=== PATIENT | male | born 1945 | race Caucasian/White ===

== ENCOUNTER 2018-12-05 12:15 | Outpatient (CLI) | payer OTHER, MEDICARE, SELFPAY ==
[2018-12-05 13:20] LABS: ALT 36 U/L (12-78); AST 30 U/L (15-37); Anion Gap 10.6 mmol/L (3-11); BUN 17 mg/dL (7-18); Bilirubin, Total 0.8 mg/dL (0.2-1.0); CO2 23.4 mmol/L (21.0-32.0); CREATININE 0.92 mg/dL (0.70-1.30); Calcium 8.8 mg/dL (8.5-10.1); Chloride 107 mmol/L (98-107); Glucose 87 mg/dL (70-100); Potassium 4.4 mmol/L (3.5-5.1); Sodium 141 mmol/L (136-145)
[2018-12-05 13:40] LABS: Albumin 3.9 g/dL (3.4-5.0); Alkaline Phosphatase 130 U/L (46-116)
[2018-12-06 09:40] LABS: PSA, Screening 0.5 ng/ml (0-6.5)
== END 2018-12-05 12:35 ==
PROVIDERS: PCP Family Medicine; Visit Provider Family Medicine
DX: K74.60 Unspecified cirrhosis of liver (principal); Z12.5 Encounter for screening for malignant neoplasm of prostate
CPT/HCPCS: 36415; 80053; 84153

== ENCOUNTER 2019-04-06 09:17 | Day surgery (SDC) | payer OTHER, MEDICARE, SELFPAY ==
[2019-04-06 09:34] VITALS: BP 110/74; PULSE 55; RESP 16; TEMP 36; O2SAT 96
[2019-04-06] MEDS: Lactated Ringers 1,000 ML 80 ML IV (09:55)
--- NOTE | 2019-04-06 10:46 | W.PM.DSUDISC ---
Discharge Plan Disposition Patient Disposition: HOME Condition: Good Discharge Details Reason For Visit: Colonoscopy Attending Provider: Isaura Ragland Primary Care Provider: Spencer Aden Home Meds and New Rx's Prescriptions: Continued levothyroxine 50 mcg tablet 50 mcg PO DAILY Qty: 90 RF: 4 Discharge Instructions Additional Instructions: Findings: Diverticulosis was present. Follow up: Plan for a colonoscopy in 5 years due to a history of polyps Please call if you develop: fevers >101.5 Nausea or Vomiting Abdominal pain that is not transient DAY SURGERY UNIT POST COLONOSCOPY INSTRUCTIONS 1. Because there will be medication in your system for the next 24 hours, you may feel a little sleepy. Your coordination will be affected. Therefore: a. Do not drive or operate dangerous equipment for 24 hours. b. Do not drink alcohol beverages for 24 hours (not even beer). c. Plan to go home and rest for the day. 2. Generally there are no restrictions on your activity after a day or so has gone by, but you may feel a bit fatigued for a few days. 3 After you arrive home you may have a light meal and return to a normal diet as you can tolerate it without feeling sick to your stomach. 4. After surgery, you may feel pain or discomfort. This should be only transient, but if it persists please contact your doctor. 5. If there are any questions regarding the findings of your procedure, please feel free to contact your doctor. 6. If you are unable to contact your doctor with a problem, contact the hospital at [phone]. 7. Continue all your regular medications unless directed otherwise. I understand the above instructions and have no questions. Signature of Patient or Responsible Adult Escort Date/Time Name of Responsible Adult Escort Signature of Nurse Date/Time Activity:: Activity as Tolerated Diet:: As Tolerated Discharge Orders Discharge Orders: Discharge Order (Routine); Ordered 04/06/19 Ordered By: Isaura Ragland DS: Diagnosis Discharge Diagnosis (1) Diverticulosis: Status: Acute
[2019-04-06 11:48] VITALS: BP 113/82; PULSE 52; RESP 18; TEMP 36.4; O2SAT 92
--- NOTE | 2019-04-09 09:46 | COLE_ITS ---
DATE OF PROCEDURE: April 06, 2019 PREOPERATIVE DIAGNOSIS: History of colon polyps. POSTOPERATIVE DIAGNOSIS: Diverticulosis. PROCEDURE: Colonoscopy. SURGEON: Isaura Ragland M.D. ANESTHESIA: General. 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 He presents for a routine follow-up. He is asymptomatic and has no family history of colon cancer. PROCEDURE: He was placed in the left [place] position. His heart rate was noted to be about 50 preope ratively and it remained here for the procedure. I discussed this with the patient postoperatively a nd he states this is his normal heart rate. Digital rectal examination revealed no abnormalities. T he scope was advanced to the cecum without difficulty. The ileocecal valve and appendiceal orifice w ere clearly identified. His prep was excellent. The scope was slowly withdrawn with no abnormalitie s seen within the ascending, transverse or descending colon. The sigmoid region revealed diverticulo sis. The rectum was normal, including on retroflex view. He tolerated the procedure well and was st able to recovery. He will need a follow-up colonoscopy again in five years, or sooner if symptoms in dicate. cc: Spencer Aden M.D.
== END 2019-04-06 12:40 | disposition home or self-care (01) ==
PROVIDERS: PCP Family Medicine; Visit Provider Surgery
PROC: 0DJD8ZZ Inspection of Lower Intestinal Tract, Via Natural or Artificial Opening Endoscopic (ICD-10-PCS; CPT 45378; principal; 2019-04-06 10:45)
DX: Z12.11 Encounter for screening for malignant neoplasm of colon (principal); K57.30 Diverticulosis of large intestine without perforation or abscess without bleeding; Z86.010 Personal history of colon polyps; G47.33 Obstructive sleep apnea (adult) (pediatric)
CPT/HCPCS: 45378

== ENCOUNTER 2019-12-11 09:57 | Outpatient (CLI) | payer OTHER, MEDICARE, SELFPAY ==
[2019-12-11 12:58] LABS: Anion Gap 11.2 mmol/L (3-11); BUN 17 mg/dL (7-18); CO2 22.8 mmol/L (21.0-32.0); CREATININE 1.05 mg/dL (0.70-1.30); Calcium 8.9 mg/dL (8.5-10.1); Chloride 104 mmol/L (98-107); Glucose 96 mg/dL (74-106); Potassium 4.6 mmol/L (3.5-5.1); Sodium 138 mmol/L (136-145)
[2019-12-12 08:51] LABS: PSA, Screening 0.5 ng/mL (0.0-6.5)
== END 2019-12-11 10:17 ==
PROVIDERS: PCP Family Medicine; Visit Provider Family Medicine
DX: I10 Essential (primary) hypertension (principal); Z12.5 Encounter for screening for malignant neoplasm of prostate
CPT/HCPCS: 36415; 80048; 84153

== ENCOUNTER 2020-05-10 17:44 | Outpatient (REF) | payer OTHER, MEDICARE, SELFPAY ==
[2020-05-12 10:22] LABS: Lyme Ab w Rflx to Lyme Confirm Negative (Negative)
[2020-05-13 19:40] LABS: Anaplasma phagocytophilum Negative (Negative); B. miyamotoi PCR Negative (Negative); Babesia divergens/MO-1 Negative (Negative); Babesia duncani Negative (Negative); Babesia microti Negative (Negative); Ehrlichia chaffeensis Negative (Negative); Ehrlichia ewingii/canis Negative (Negative); Ehrlichia muris eauclairensis Negative (Negative)
== END 2020-05-10 18:04 ==
LOC: LBN 17:44
PROVIDERS: PCP Family Medicine; Visit Provider Nurse Practitioner Family
DX: S40.261A Insect bite (nonvenomous) of right shoulder, initial encounter (principal); W57.XXXA Bitten or stung by nonvenomous insect and other nonvenomous arthropods, initial encounter
CPT/HCPCS: 87798; 86618

== ENCOUNTER 2020-06-30 02:47 | Outpatient (CLI) | payer OTHER, MEDICARE, SELFPAY ==
[2020-07-01 10:43] LABS: Lyme Ab w Rflx to Lyme Confirm Positive (Negative)
[2020-07-02 14:42] LABS: IgG Band(s) p66; IgG Immunoblot Negative (Negative); IgM Band(s) p41; IgM Immunoblot Positive (Negative)
[2020-07-03 00:15] LABS: Anaplasma phagocytophilum Negative (Negative); B. miyamotoi PCR Negative (Negative); Babesia divergens/MO-1 Negative (Negative); Babesia duncani Negative (Negative); Babesia microti Negative (Negative); Ehrlichia chaffeensis Negative (Negative); Ehrlichia ewingii/canis Negative (Negative); Ehrlichia muris eauclairensis Negative (Negative)
== END 2020-06-30 03:07 ==
PROVIDERS: Nurse Practitioner Family; PCP Family Medicine; Visit Provider Family Medicine
DX: A69.20 Lyme disease, unspecified (principal)
CPT/HCPCS: 36415; 86617; 87798; 86618

== ENCOUNTER 2021-01-07 09:28 | Outpatient (CLI) | payer OTHER, MEDICARE, SELFPAY ==
[2021-01-07 13:00] LABS: Hemoglobin A1C 5.9 % (<5.7)
[2021-01-07 13:15] LABS: ALT 33 U/L (16-63); AST 31 U/L (15-37); Albumin 3.7 g/dL (3.4-5.0); Alkaline Phosphatase 119 U/L (46-116); Anion Gap 8.1 mmol/L (3-11); BUN 18 mg/dL (7-18); Bilirubin, Total 0.6 mg/dL (0.2-1.0); CO2 26.9 mmol/L (21.0-32.0); CREATININE 0.9 mg/dL (0.70-1.30); Calcium 8.6 mg/dL (8.5-10.1); Calculated LDL 101 mg/dL (<100); Chloride 108 mmol/L (98-107); Cholesterol 160 mg/dL (<200); Glucose 98 mg/dL (74-106); HDL Cholesterol 36 mg/dL (40-60); Potassium 4.9 mmol/L (3.5-5.1); Sodium 143 mmol/L (136-145); TSH 2.56 uIU/mL (0.36-3.74); Total Protein 6.7 g/dL (6.4-8.2); Triglyceride 115 mg/dL (<150)
== END 2021-01-07 09:29 | disposition home or self-care (01) ==
LOC: LOS 09:28
PROVIDERS: PCP Nurse Practitioner Family; Referring Provider Nurse Practitioner Family; Visit Provider Nurse Practitioner Family
DX: I10 Essential (primary) hypertension (principal); E78.1 Pure hyperglyceridemia; E03.9 Hypothyroidism, unspecified; Z13.1 Encounter for screening for diabetes mellitus
CPT/HCPCS: 36415; 80053; 80061; 83036; 84443

== ENCOUNTER 2022-01-08 01:03 | Outpatient (CLI) | payer MEDICARE, BC, SELFPAY ==
--- OUTSIDE RECORDS SUMMARY | 2022-01-08 01:07 | XMS_ITS | Encounter Summary ---
:1945 Author Organization [facility] [place] [address] Care Team Providers Name Role Phone Cheryle Carrasco MD Primary Care Provider Encounter Details Date Type Department Care Team Description 12/20/2012 Hospital Gastroenterology at [facility] Linda Palmer MD Cirrhosis of liver Encounter [facility] [place] [address] CENTER [phone] [place] [address] Social History Tobacco Use Types Packs/Day Years Used Date Former Smoker Pipe 0.8 40 Quit: 12/19/19 05 Alcohol Use Standard Drinks/Week Comments Yes 8 (1 standard drink = 0.6 oz pure Drank 1-2 drinks daily x 40+ years. alcohol) Retired in 2010 and started drinking more (6 dri nks daily). Last drink (1 beer) 12/15/12. Alcohol Habits Answer Date Recorded How often do you have a drink Not asked containing alcohol? How many drinks containing alcohol do Not asked you have on a typical day when you are drinking? How often do you have six or more Not asked drinks on one occasion? Comment: Drank 1-2 drinks daily x 40+ 12/18/2012 years. Retired in 2010 and started drinking more (6 drinks daily). Last drink (1 beer) 12/15/12. Sex Assigned at Date Recorded Not on file documented as of this encounter Last Filed Vital Signs Vital Sign Reading Time Taken Comments Blood Pressure 115/80 12/20/2012 10:41 AM EDT Pulse 55 12/20/2012 10:41 AM EDT Temperature 36.6 ??C (97.9 ??F) 12/20/2012 9:33 AM EDT Respiratory Rate 16 12/20/2012 10:41 AM EDT Oxygen Saturation 96% 12/20/2012 10:41 AM EDT Inhaled Oxygen Concentration - - Weight 134.3 kg (296 lb) 12/20/2012 9:33 AM EDT Height 177.8 cm (5' 10) 12/20/2012 9:33 AM EDT Body Mass Index 42.47 12/20/2012 9:33 AM EDT documented in this encounter Discharge Instructions Discharge InstructionsCristal Hemphill RN - 12/20/2012 10:18 AM EDT You may have received medication before and/or during your procedure which effects judgement and reaction time. Do not drive, operate machinery,drink alcoholic beverages or make important decisions for 24 hours. Be careful on stairs, as you may be unsteady on your feet. You may eat a regular diet as tolerated. Do not smoke if you are alone. IV site-- slight redness or tenderness is normal. You may use a warm compress. If tenderness and redness increase or foul drainage occur please notify your MD. Please call [phone] before 5pm with problems, questions or concerns. After 5 pm call [phone] and ask to speak with the GI fellow mutton puncher. Discharge instructions reviewed with patient who expresses understanding. AttachmentsThe following attachments cannot be sent through Care Everywhere. UPPER GI ENDOSCOPY: WHAT TO EXPECT AT HOME (THAI)documented in this encounter Medications at Time of Discharge Medication Sig Dispensed Refills Start Date End Date LEVOTHYROXINE SODIUM Take by mouth 0 (SYNTHROID ORAL) daily. documented as of this encounter H&P Notes Linda Palmer MD - 12/20/2012 9:51 AM EDT Gastroenterology & Hepatology Pre-Procedure History and Physical Procedure: EGD Indication: liver disease, assess for portal htn History of Present Illness: Chronically elevated liver tests, ?of cirrhosis based on CT scan. PMH: HTN Obesity Hyperlipidemia Medications: No current facility-administered medications on file prior to encounter. Current Outpatient Prescriptions on File Prior to Encounter Medication Sig Dispense Refill ??? LEVOTHYROXINE SODIUM (SYNTHROID ORAL) Take by mouth daily. Allergies: Allergies Allergen Reactions ??? Contrast (Iodine-Iodine Containing) Anaphylaxis Exam: Patient Vitals for the past 24 hrs: BP Temp Temp src Pulse Resp SpO2 Height Weight 12/20/12 0933 152/96 mmHg 36.6 ??C (97.9 ??F) Oral 60 16 95 % 177.8 cm (5' 10) 134.265 kg (296 lb) Airway examined Chest- clear Heart- RRR, nl s1, s2 Abdomen- normal bowel sounds, soft, non tender Assessment and Plan: Upper Endoscopy. Anesthesia for sedation. Risks and benefits of the procedure were discussed with the patient. Consent has been signed. documented in this encounter Miscellaneous Notes Brigid - Provider, Scanning - 12/20/2012 10:18 PM EDT Brigid - Iker Scanning - 12/20/2012 10:16 PM EDT OR Attestation - Linda Palmer MD - 12/20/2012 10:11 AM EDT Attestation: Case Date: 12/20/2012 As the attending physician, I performed the entire procedure. LINDA PALMER MD 12/20/2012 Brigid - Provider, Scanning - 12/20/2012 9:33 AM EDT Brigid - Provider Scanning - 12/20/2012 9:28 AM EDT documented in this encounter Plan of Treatment Not on filedocumented as of this encounter Procedures Procedure Name Priority Date/Time Associated Comments Diagnosis SURGICAL PATHOLOGY Routine 12/20/2012 10:11 Resul ts for this REPORT AM EDT procedure are i n the results section. SPECIMEN TO PATHOLOGY Routine 12/20/2012 10:11 Re sults for this AM EDT procedure are i n the results section. SPECIMEN TO PATHOLOGY Routine 12/20/2012 10:11 Re sults for this AM EDT procedure are i n the results section. UPPER GASTROINTESTINAL Routine 12/20/2012 10:03 Cirrhosis of l iver ENDOSCOPY,WITH BIOPSY AM EDT SINGLE OR MULTIPLE UPPER GASTROINTESTINAL 12/20/2012 9:54 Cirrhosis of li dara ENDOSCOPY,WITH BIOPSY AM EDT SINGLE OR MULTIPLE (WRVU 2.49) UPPER GI ENDOSCOPY Routine 12/20/2012 9:33 Result s for this AM EDT procedure are i n the results section. documented in this encounter Results Surgical Pathology Report (12/20/2012 10:11 AM EDT) Component Value Ref Test Analysis Performed At [facility] gist Range Method Time Signature Surgical CERNER Pathology ? [facility] Report ? Provider: ?? LINDA PALMER ? Pt. Name: ?? Yong ALEX JANEEN Black ? Acc #: ?[id number] ?Pt. MRN: ?[id number] ? Col Date: ?? 3 ? /Sex: ?1945,(67 years),Male ? Rec Date: ?? 12/20/2012 ? LOC: ?4T ? SURGICAL PATHOLOGY ? ---Pathologic Diagnosis--- ? Endoscopic biopsies - ? A. Gastric antral gla nd mucosa with mild nonspecific reactive gastropathy. ? Gastric fundic mucosa within normal limits. No H. pylori-like microorganism ? is seen. ? B. Squamous esophagea l mucosa with rare eosinophils (0-1/HPF), consistent ? with reflux esophagitis. ? GMS stain is negative for fungal organism. ? CR-0 ? 12/22/12 ? AAS ? 12/22/12 Verified by: ? Vilma Nolan MD ? Pathologist ? (Electronic Si gnature) ? The attending pathologist whose signature appears o n this report has ? reviewed all diagnostic slides and has edited the darlene ss and/or ? microscopic portion of the report in rendering the fi nal pathologic ? diagnosis. ? ---Gross Description--- ? A - Labeled/Fixative: Biopsies stomach, formalin. ? Quantity/Size: Multiple, ranging from 0.1-0.3 cm. ? Tissue Description: Polypoid kim soft tissues. ? Sections/Processing: (T1) ? B - Labeled/Fixative: Biopsies esophagus , formalin. ? Quantity/Size: Three, averaging 0.2 cm. ? Tissue Description: Polypoid kim soft tissues. ? Sections/Processing: (T1) ??shb ? ---Clinical Information--- ? Specimen Submitted: ? A - Biopsies stomach ? B - Biopsies esohagus ? Clinical History: ? Patient with abnormal liver tests ? [facility] ? Provider: ?? LINDA PALMER ? Pt. Name: ?? M JANEEN JOHNSON ? Acc #: ?[id number] ?Pt. MRN: ?[id number] ? Col Date: ?? 3 ? /Sex: ?1945,(67 years),Male ? Rec Date: ?? 12/20/2012 ? LOC: ?4T ? SURGICAL PATHOLOGY ? Clinical Diagnosis: ? Gastric erythema/erosion, esophageal white plaques Specimen (Source) Anatomical Collection Method Collection Time Re ceived Time Location / / Volume Laterality 12/20/2012 10:11 AM EDT Linda Palmer MD PATHOLOGY/CYTOLOGY ORDERABLE S Performing Organization Address City/[facility]/[place] [address] CERNER MILLENNIUM Specimen to Pathology (surgical or derm) (12/20/2012 10:11 AM EDT) Specimen Anatomical Collection Method Collection Time Receive d Time (Source) Location / / Volume Laterality AP Specimen 12/20/2012 10:11 12/20/2012 AM EDT 10:11 AM EDT Narrative CERNER MILLENNIUM - 12/20/2012 10:11 AM EDT Specimen requisition ordered. ??Separate Pathology report to follow Linda Plamer MD PATHOLOGY/CYTOLOGY ORDERABLE S Performing Organization Address City/[facility]/[place] [address] CERNER MILLENNIUM Specimen to Pathology (surgical or derm) (12/20/2012 10:11 AM EDT) Specimen Anatomical Collection Method Collection Time Receive d Time (Source) Location / / Volume Laterality AP Specimen 12/20/2012 10:11 12/20/2012 AM EDT 10:11 AM EDT Narrative CERNER MILLENNIUM - 12/20/2012 10:11 AM EDT Specimen requisition ordered. ??Separate Pathology report to follow Linda Palmer MD PATHOLOGY/CYTOLOGY ORDERABLE S Performing Organization Address City/[facility]/[place] [address] CERNER MILLENNIUM UPPER GI ENDOSCOPY (12/20/2012 9:33 AM EDT) [facility] gist Method Time Signature UPPER GI [facility] ENDOSCOPY Endoscopy Patient Name: Janeen Harris ? Procedure Date: 12/20/2012 9:33 AM ? Date of : 1945 ? Age: 67 ? Order #: [id number] ? Procedure: ? Upper GI endoscopy Indications: ? Chronic liver disease, ?portal ? hypertension Providers: ? Linda Palmer MD, Erma López, RN, ? Kiara Morales Referring : ?Dieetr Anderson MD, Patria Rodgers, ELADIO Medicines: ? Propofol per Anesthesia Complications: ? No immediate complications. Procedure: ? The procedure, indications, benefi ts, ? risks and alternatives were e xplained ? to the patient. Specifically ? discussed were potential ? complications including, but not ? limited to, bleeding, perfora tion, ? infection, missing a cancer, and ? adverse medication reactions. The ? Endoscope was introduced thro [facility] the ? mouth, and advanced to the ird part ? of duodenum. The patient tole rated ? the procedure well. The upper GI ? endoscopy was accomplished wi [facility] ? difficulty. The patient miguelito ated the ? procedure well. ? Findings: ? 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 There were no obvious varices. ? Multiple small plaques were found in the middle third ? of the esophagus and in the lower third of the ? esophagus. Biopsies were taken with a cold forceps ? for histology. ? Diffuse mildly erythematous mucosa was found in the ? gastric body and in the gastric antrum. Biopsies were ? taken with a cold forceps for histology. The ? appearance was not typical of portal gastropathy. ? A few localized erosions were found in the prepyloric ? region of the stomach. ? The examined duodenum was normal. ? Impression: ?- Z-line irregular,. ? - Multiple plaques in the mid dle ? third of the esophagus and in the ? lower third of the esophagus. This ? was biopsied. ? - Gastric mucosal abnormality in the ? gastric body and antrum reji cterized ? by erythema. This was biopsie d. ? - Erosive gastropathy. ? - Normal examined duodenum. Recommendation: ?No obvious signs of portal htn. ? Gastric findings suggestive o f ? aspirin injury. ? Esophageal findings suggestiv e of ? temo esophagitis and long standing ? acid reflux. Will await biops y ? results, but he should start PPI. ? Follow up in clinic re abnorm al lft's. ? Linda Palmer MD 12/20/2012 10:17 AM This report has been signed electronically. Number of Addenda: 0 Note Initiated On: 12/20/2012 9:33 AM Specimen (Source) Anatomical Collection Method Collection Time Re ceived Time Location / / Volume Laterality 12/20/2012 9:33 AM EDT Dieter Anderson MD GENERAL SURGICAL ORDERABLES Performing Organization Address City/State/ZIP Code Phon e Number [facility] documented in this encounter Visit Diagnoses Diagnosis Cirrhosis of liver Cirrhosis of liver without mention of al cohol documented in this encounter Active and Recently Administered Medications Care Teams Lifeline Representatives Relationship Specialty Start Date End Date Cheryle Carrasco MD PCP - General 12/20/12 01/30/[address] [place] [phone] documented as of this encounter
--- OUTSIDE RECORDS SUMMARY | 2022-01-08 01:07 | XMS_ITS | Encounter Summary ---
:1945 Author Organization [facility] [place] [address] Care Team Providers Name Role Phone Spencer Aden MD Primary Care Provider Encounter Details Date Type Department Care Team Description 11/01/2013 Telephone Gastroenterology at [facility] [place] [address] Social History Tobacco Use Types Packs/Day Years [...] on file documented as of this encounter Miscellaneous Notes Telephone Encounter - Bridget Porter - 11/01/2013 1:20 PM EDT Called Mr. Harris to schedule his 1 year follow up visit with Patria Rodgers APRN, an abdominal MRI, and blood work. He said he would like to discuss the necessity of this with his PCP, Dr. Spencer Aden, when he sees him on 12/10 and will call us after that. I will cc this note to Imelda as well as Dr. Aden and will attach Imelda's last office note and telephone note for Dr. Aden's reference. Bridget Porter Sr. Clinical Hog Feeder Gastroenterology and Hepatology documented in this encounter Plan of Treatment Not on filedocumented as of this encounter Visit Diagnoses Not on filedocumented in this encounter Care Teams Top Dyeing Machine Loader Relationship Specialty Start Date End Date Spencer Aden MD PCP - General 01/31/[address] [place] [address] documented as of this encounter
--- OUTSIDE RECORDS SUMMARY | 2022-01-08 01:07 | XMS_ITS | Encounter Summary ---
:1945 Author Organization [facility] [place] [address] Care Team Providers Name Role Phone Justin Khoury MD, Dieter Primary Care Provider Encounter Details Date Type Department Care Team Description 05/19/2012 Orders Only [place]astro[place] [facility] Patria Rodgers, [facility] [place] [address] [facility] [phone] GASTROENTEROLOGY DEPT [place], [place] [address] (Wo rk) Social History Tobacco Use Types Packs/Day Years Used Date Never Assessed Sex Assigned at Date Recorded Not on file documented as of this encounter Plan of Treatment Not on filedocumented as of this encounter Procedures Procedure Name Priority Date/Time Associated Diagnosis Comme nts FILM LIBRARY Routine 05/19/2012 8:01 AM Results f or this STORAGE ONLY CT EST procedure ar e in ABDOMEN the results section. documented in this encounter Results Film Library- Storage only CT Abdomen (05/19/2012 8:01 AM EST) Specimen (Source) Anatomical Collection Method Collection Time Re ceived Time Location / / Volume Laterality 05/19/2012 8:01 AM EST Narrative [facility] - 02/05/2014 11:44 PM EDT This is a non-reportable exam. Procedure Note Ramiro Rodriguez - 02/05/2014Formatti ng of this note might be different from the original. This is a non-reportable exam. Patria Rodgers APRN [facility] FILM LIBRARY ORDERABLES Performing Organization Address City/State/ZIP Code Phon e Number [facility] [address] [facility] [place] [address] documented in this encounter Visit Diagnoses Not on filedocumented in this encounter Care Teams Senior It Engineer Relationship Specialty Start Date End Date Dieter Anderson MD PCP - General 05/05/10 12/19/12 [address] [place] [address] documented as of this encounter
--- OUTSIDE RECORDS SUMMARY | 2022-01-08 01:07 | XMS_ITS | Encounter Summary ---
:1945 Author Organization [facility] [place] [address] Care Team Providers Name Role Phone Cheryle Carrasco MD Primary Care Provider Encounter Details Date Type Department Care Team Description 12/20/2012 Anesthesia Event Gastroenterology at [facility] Neena Goodwin MD [facility] [place] [address] [facility] [place] [address] Anesthesia Record Procedure Summary Procedure Name Responsible Anesthesia Start Anesthesia Stop Anesthesiologist Time Time UPPER GASTROINTESTINAL Neena Goodwin MD 12/20/12 0949 1016 ENDOSCOPY,WITH BIOPSY SINGLE OR MULTIPLE (WRVU 2.49) (N/A Trunk) Events Date Time Event Comment 12/20/2012 0934 0949 Start 0953 AN Verify 0953 An Start Data 0955 An Induction 0955 Anesthesia Ready 1009 an stop data 1016 Stop Name Total Propofol 250 mg Sodium Chloride 0.9% 100 mL Agents Name O2 Auxiliary Flowmeter 1 Blood No blood administrations on file. Lines, Drains, and Airways Type Details Placement Removal PIV 12/20/12; 0943; 12/20/12; 12/20/12 0943 by Laila Wyman 12/20/12 1053 by Maxi Hemphill, RN Cristal Capone RN documented in this encounter Social History Tobacco Use Types Packs/Day Years [...] on file documented as of this encounter OR Notes Anesthesia Postprocedure Evaluation - Neena Goodwin MD - 12/20/2012 10:52 AM EDT Patient: Anam Harris Procedure(s) Performed: Procedure(s): UPPER GASTROINTESTINAL ENDOSCOPY,WITH BIOPSY SINGLE OR MULTIPLE Actual Anesthetic: MAC Patient location: PACU Post-op pain: Adequate analgesia Post-op nausea: no nausea or vomiting Last Vitals: Filed Vitals: 12/20/12 1041 BP: 115/80 Pulse: 55 Temp: Resp: 16 Post-op cardiovascular and respiratory status: is stable Level of consciousness: awake, alert and oriented Complications: no apparent complications and tolerated the procedure well Fluid Status: normal Anesthesia Preprocedure Evaluation - Neena Goodwin MD - 12/20/2012 9:33 AM EDT Pre-Anesthesia Evaluation for: Anam Harris a 67 y.o. male. Procedure(s): EGD, UPPER GI ENDOSCOPY There are no active problems to display for this patient. Past Medical History Diagnosis Date ??? Hypothyroid ??? History of hypertension ??? SURAJ (obstructive sleep apnea) BiPAP ??? Reactive airway disease ??? Hypertriglyceridemia ??? Colon polyps Past Surgical History Procedure Date ??? Cataract removal 2004 bilateral ??? Ventral hernia repair 1997 ??? Total knee arthroplasty 2008 bilateral ??? Tonsillectomy and adenoidectomy 1951 ??? Vasectomy 1974 ??? Vasectomy reversal 1978 ??? Vasectomy 1986 History Substance Use Topics ??? Smoking status: Former Smoker -- 0.8 packs/day for 40 years Types: Pipe Quit date: 12/18/2004 ??? Smokeless tobacco: Not on file ??? Alcohol Use: 4.8 oz/week 8 Shots of liquor per week Drank 1-2 drinks daily x 40+ years. Retired in 2010 and started drinking more (6 drinks daily). Last drink (1 beer) 12/15/12. History Drug Use Not on file No hx of IV or intranasal drug use Allergies Allergen Reactions ??? Contrast (Iodine-Iodine Containing) Anaphylaxis Medications: MAR and/or home medications have been reviewed. Physical Exam: There were no vitals filed for this visit. There is no height or weight on file to calculate BMI. Airway Assessment: Mallampati: I TM distance: >3 FB Neck ROM: full Cardiovascular Assessment: Pulmonary Assessment: Dental Assessment: (+) upper dentures and lower dentures [facility] [place] [place] Assessment: Anesthesia Plan: ASA 2 MAC, Morbid obesity, NG to be evaluated for cirrhosis Region - Other Informed Consent: Anesthetic plan and risks discussed with patient. Plan discussed with AUTO HAULAWAY DRIVER. [facility] Assessment: documented in this encounter Plan of Treatment Not on filedocumented as of this encounter Visit Diagnoses Not on filedocumented in this encounter Administered Medications Inactive Administered Medications - up to 3 most recent administrations Medication Order MAR Action Action Date Dose Rate Site propofol (DIPRIVAN) 10 mg/mL bolus Given 12/20/2012 10:05 AM EDT 20 mg injection (Anesthesia) PRN, Starting on Tue12/20/12 at 0956, Until Tue12/20/12 at 1016, Anesthesia Intra-op Given 12/20/2012 10:03 AM EDT 50 mg Given 12/20/2012 10:01 AM EDT 40 mg sodium chloride 0.9% infusion New Bag 12/20/2012 9:49 AM EDT mL CONTINUOUS PRN, Starting on Tue12/20/12 at 0949, Until Tue12/20/12 at 1016, Anesthesia Intra-op documented in this encounter Care Teams Equipment Driver Relationship Specialty Start Date End Date Cheryle Carrasco MD PCP - General 12/20/12 01/30/13 [address] [place] [phone] documented as of this encounter
--- OUTSIDE RECORDS SUMMARY | 2022-01-08 01:07 | XMS_ITS | Encounter Summary ---
:1945 Author Organization [facility] [place] [address] Care Team Providers Name Role Phone Spencer Aden MD Primary Care Provider Reason for Visit Reason Comments GI Problem Encounter Details Date Type Department Care Team Description 12/18/2012 Office Visit Gastroenterology at [facility] Patria Rodgers Cirrhosis of liver [facility] Gladis Londono APRN (Primary Dx) [place] [address] [facility] [phone] CENTER GASTROENTEROLOGY DEPT [place], [place] [address] Social History Tobacco Use Types Packs/Day Years Used Date Former Smoker Pipe 0.8 40 Quit: 12/19/19 05 Alcohol Use Standard Drinks/Week Comments Yes 0 (1 standard drink = 0.6 oz pure [...] Sign Reading Time Taken Comments Blood Pressure 159/82 12/18/2012 8:32 AM EDT Pulse 73 12/18/2012 8:32 AM EDT Temperature - - Respiratory Rate - - Oxygen Saturation - - Inhaled Oxygen Concentration - - Weight 134.3 kg (296 lb) 12/18/2012 8:32 AM EDT Height 177.8 cm (5' 10) 12/18/2012 8:32 AM EDT Body Mass Index 42.47 12/18/2012 8:32 AM EDT documented in this encounter Progress Notes Patria Rodgers APRN - 02/01/2013 9:42 AM EDT Outside Labs 12/27/12: Hgb 15.1 Plt 159 AFP 8.59 Hep A Ab negative Hep B sAb negative HFE negative for C282Y and H63D mutations Patria Rodgers APRN - 12/19/2012 5:38 PM EDT I received outside labs on 12/19/12. Outside Labs 11/13/12: Glucose 137 Creat 0.9 T. Chol 206 TG 135 HDL 31 LDL 155 Alb 3.4 T. Bili 1.78 AP 126 AST 181 ALT 115 Ferritin 706 Iron 226 TIBC 289 Transferrin 78 INR 1.2 HbA1c 5.8 Hep B sAg negative Hep B cAb negative Hep C Ab negative Patria Rodgers APRN - 12/18/2012 5:05 PM EDT Outside Abd CT Scan without Contrast 05/19/12: Hepatic steatosis and mild hepatomegaly. No other specific abnormality identified apart from incidental right non-obstructing nephrolithiasis. Patria Rodgers APRN - 12/18/2012 8:33 AM EDT Subjective: Patient ID: Anam Harris is a 67 y.o. male. HPI Mr. Harris is a very pleasant 67 year old white male seen today at [facility] in consultation for possible early cirrhosis based. This was diagnosed by CT scan but unfortunately I do not have copy of this CT scan nor do I have copy of any recent lab results, making this consult challenging. Mr. Harris has no risk factors for viral hepatitis. He tells me he was screened but unfortunately [facility] received those records. Mr. Harris admits to drinking 1-2 alcohol beverages daily x 30-40 years. After he retired in 2010 he admits that he drank heavily (6 alcoholic beverages daily). His last ETOH was on 12/16/12. Mr. Harris has risk factors for NG to include Class III Obesity, hyperlipidemia, hypothyroid. He presents today with complaints of coughing, wheezing and dyspnea. He developed these symptoms after severe allergic reaction to poison jac. He bruises easily which has been ongoing for many years. He denies fever, chills, chest pain, palpitations, abdominal distention, abdominal pain, melena, hematochezia, N, V, rashes and confusion. Outside Abdominal Ultrasound 10/01/10: The liver shows increased echogenicity and decreased through transmission, consistent with fatty infiltration. The posterior portions of the liver are not penetrated. No focal liver lesions or biliary dilatation is seen. No gallstones or gallbladder wall thickening is present. The spleen, kidneys and aorta are unremarkable. The visualized portions of the pancreas are unremarkable. Outside Labs 11/13/12: LKM1 Ab negative BOGDAN negative ANCA negative AMA negative SMA weakly positive (20) Ceruloplasmin 25.4 A1AT 202 03/21/10 09/24/10 12/15/10 03/24/11 05/10/12 T. Bili 1.0 0.87 0.84 0.76 AP 108 134 123 139 163 AST 57 101 78 63 181 ALT 70 103 106 91 150 Past Medical History Diagnosis Date ??? Hypothyroid ??? History of hypertension ??? SURAJ (obstructive sleep apnea) BiPAP ??? Reactive airway disease ??? Hypertriglyceridemia ??? Colon polyps Past Surgical History Procedure Date ??? Cataract removal 2005 bilateral ??? Ventral hernia repair 1997 ??? Total knee arthroplasty 2008 bilateral ??? Tonsillectomy and adenoidectomy 1950 ??? Vasectomy 1974 ??? Vasectomy reversal 1978 ??? Vasectomy 1986 LEVOTHYROXINE SODIUM (SYNTHROID ORAL) Allergies Allergen Reactions ??? Contrast (Iodine-Iodine Containing) Family Status Relation Status Age ??? Father 65 accidental, ? internal bleeding, HTN ??? Mother Alive age 89, healthy ??? Sister Alive age 70, hypothyroid ??? Sister Alive age 65, hypothyroid, DM2 ??? Son Alive age 46, healthy ??? Son Alive age 43, healthy ??? Daughter Alive age 40, healthy ??? Son Alive age 31, healthy ??? Daughter Alive age 25, healthy ??? Maternal Grandmother unknown ??? Maternal Grandfather unknown ??? Paternal Grandmother 60's RA ??? Paternal Grandfather 68 cerebral hemorrhage Family History Problem Relation Age of Onset ??? Hypertension Father ??? Type 2 Diabetes Sister ??? Hypothyroidism Sister ??? Hypothyroidism Sister ??? Rheumatoid Arthritis Paternal Grandmother ??? Aneurysm Paternal Grandfather ??? Liver Disease Father never dx but believes had liver dz History Social History ??? Marital Status: Spouse Name: N/A Number of Children: N/A ??? Years of Education: N/A Occupational History ??? Not on file. Social History Main Topics ??? Smoking status: Former Smoker -- 0.8 packs/day for 40 years Types: Pipe Quit date: 12/18/2004 ??? Smokeless tobacco: Not on file ??? Alcohol Use: Yes Drank 1-2 drinks daily x 40+ years. Retired in 2010 and started drinking more (6 drinks daily). Last drink (1 beer) 12/15/12. ??? Drug Use: Not on file No hx of IV or intranasal drug use ??? Sexually Active: Not on file Other Topics Concern ??? Blood Transfusions No ??? Service No Social History Narrative Lives at home with . Retired in June 2010. 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 Review of Systems Constitutional: Positive for diaphoresis (Gets warm easily). Negative for fever, chills, fatigue andunexpected weight change. HENT: Negative for trouble swallowing. Respiratory: Positive for cough (Coughs up white mucous), shortness of breath (walking uphill. occ at rest) and wheezing (improved since initial allergic reaction). Developed severe allergic reaction to poison jac. Then developed coughing, wheezing and worsening SOB Cardiovascular: Positive for leg swelling (Intermittently (rare)). Negative for chest pain and palpitations. Gastrointestinal: Negative for nausea, vomiting, abdominal pain, diarrhea, constipation, blood in stool and abdominal distention. Denies heartburn BM once daily Last colonoscopy x 2 years ago at [facility]; 3 polyps removed. Due 5 years from last colonoscopy Genitourinary: Negative for hematuria. Musculoskeletal: Positive for arthralgias (thumbs, knees). Negative for back pain. Skin: Negative for color change and rash. Denies pruritus Neurological: Positive for light-headedness (When firsts sits up quickly). Negative for dizziness, tremors, syncope and weakness. Hematological: Bruises/bleeds easily (Easy bruising x many years). Psychiatric/Behavioral: Positive for confusion (Occasional confusion, worse in evening) and dysphoric mood (Depressed and anxious about current health). Negative for suicidal ideas and sleep disturbance. The patient is not nervous/anxious. Objective: Physical Exam Constitutional: He is oriented to person, place, and time. He appears well- developed and well-nourished. Body mass index is 42.47 kg/(m^2). HENT: Head: Normocephalic and atraumatic. Eyes: Pupils are equal, round, and reactive to light. No scleral icterus. Neck: Normal range of motion. Neck supple. No thyromegaly present. Cardiovascular: Normal rate, regular rhythm and normal heart sounds. Pulmonary/Chest: Effort normal and breath sounds normal. He has no wheezes. He has no rales. Abdominal: Soft. Bowel sounds are normal. He exhibits no distension and no mass. There is no tenderness. There is no guarding. Exam limited due to body habitus. Hepatomegaly Musculoskeletal: He exhibits edema (1+ pitting edema BLE). Lymphadenopathy: He has no cervical adenopathy. Neurological: He is alert and oriented to person, place, and time. No asterixis Skin: Skin is warm and dry. No erythema. Psychiatric: He has a normal mood and affect. His behavior is normal. Assessment and Plan: Mr. Harris is a very pleasant 67 year old white male seen today in consultation for possible early cirrhosis. This diagnosis was made by CT scan, but unfortunately I do not have a copy of this report at the time of his visit, making the consult challenging. He also had recent labs but again I do not have a copy of these results at time of visit. -He does not have risk factors for viral hepatitis and he tells me he was tested for HCV. I do not have a copy of those results. -He admits to drinking 1-2 drinks daily x 30-40 years. Since retiring in 2010 he admits to drinking 6 alcoholic beverages daily. His last ETOH was on 12/16/12. -He has risk factors for NG to include Class III Obesity, hyperlipidemia and hypothyroid. Will request copy of his CT scan and recent labs. He had Colonoscopy at [facility] about 2 years ago. Will request a copy of this report. I had a long discussion with the patient and his today about cirrhosis, including risk of decompensation and liver cancer. 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 He cannot have iodine-containing IV contrast due to allergy. I have advised complete abstinence from all alcohol as there is no safe limit in setting of cirrhosis. Will arrange for EGD to screen for esophageal varices. All of his questions were answered at the conclusion of the visit. He verbalized understanding and agreement to the plan of care. -Await records -EGD -Labs (locally) -F/U appt in 6 month with labs and imaging documented in this encounter Plan of Treatment Not on filedocumented as of this encounter Visit Diagnoses Diagnosis Cirrhosis of liver - Primary Cirrhosis of liver without mention of al cohol documented in this encounter Care Teams Outboard Technician Relationship Specialty Start Date End Date Spencer Aden MD PCP - General 01/31/[address] [place] [address] documented as of this encounter
--- OUTSIDE RECORDS SUMMARY | 2022-01-08 01:07 | XMS_ITS | Encounter Summary ---
:1945 Author Organization [facility] [place] [address] Care Team Providers Name Role Phone Spencer Aden MD Primary Care Provider Encounter Details Date Type Department Care Team Description 06/01/2013 Telephone Gastroenterology at [facility] Patria Rodgers, [facility] [place] [address] [facility] [phone] GASTROENTEROLOGY DEPT [place], [place] [address] (Wo rk) Social History Tobacco [...] this encounter Miscellaneous Notes Telephone Encounter - Patria Rodgers APRN - 06/01/2013 9:30 AM EST I received a message that pt had canceled his follow-up appointment with me at the recommendation ofhis PCP. I called and spoke with pt. He tells me that he has a new PCP. PCP has advised that he can follow pt's cirrhosis. I advised that pt will need bi-annual labs (CBC, CMP, INR and AFP) as well as imaging (ultrasound, MRI or CT scan) to screen for HCC. He will also require repeat EGD in 2-3 years for portal HTN screening. He is declining a follow-up appt with me at this time. I advised that I will put him into recall forone year at which time he will need labs and imaging. He said he would discuss with PCP to see if this is necessary. 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 He has also lost 10 lbs which is likely due from abstaining from alcohol. Encouraged him to continue with sobriety and weight loss. documented in this encounter Plan of Treatment Not on filedocumented as of this encounter Visit Diagnoses Diagnosis Cirrhosis of liver - Primary Cirrhosis of liver without mention of al cohol documented in this encounter Care Teams Starting Sheet Tank Operator Relationship Specialty Start Date End Date Spencer Aden MD PCP - General 01/31/[address] [place] [address] documented as of this encounter
--- OUTSIDE RECORDS SUMMARY | 2022-01-08 01:07 | XMS_ITS | Encounter Summary ---
:1945 [place] [address] Care Team Providers Name Role Phone Justin Khoury MD, Mark Primary Care Provider Encounter Details Date Type Department Care Team Description 12/15/2012 Abstract Gastroenterology at [facility] Chrissy Soto I, [place] [address] Social History Tobacco Use Types Packs/Day Years Used Date Former Smoker Sex Assigned at Date Recorded Not on file documented as of this encounter Plan of Treatment Not on filedocumented as of this encounter Visit Diagnoses Not on filedocumented in this encounter Care Teams Patient Coordinator Relationship Specialty Start Date End Date Dieter Anderson MD PCP - General 05/05/10 12/19/12 [address] [place] [address] documented as of this encounter
--- OUTSIDE RECORDS SUMMARY | 2022-01-08 01:07 | XMS_ITS | Encounter Summary ---
:1945 Author Organization [facility] [address] Care Team Providers Name Role Phone Justin Khoury MD, Dieter Primary Care Provider Encounter Details Date Type Department Care Team Description 10/01/2010 Orders Only Gastroenterology at [facility] Patria Rodgers, [facility] [place] [address] [facility] [phone] GASTROENTEROLOGY DEPT [place], [place] [address] (Wo rk) Social History Tobacco Use Types Packs/Day Years Used Date Never Assessed Sex Assigned at Date Recorded Not on file documented as of this encounter Plan of Treatment Not on filedocumented as of this encounter Procedures Procedure Name Priority Date/Time Associated Comments Diagnosis FILM LIBRARY STORAGE Routine 10/01/2010 8:12 AM R esults for this ONLY ULTRASOUND EDT procedure ar e in STUDY the results section. documented in this encounter Results Film Library- Storage only Ultrasound Study (10/01/2010 8:12 AM EDT) Specimen (Source) Anatomical Collection Method Collection Time Re ceived Time Location / / Volume Laterality 10/01/2010 8:12 AM EDT Narrative RAD - 02/05/2014 11:44 PM EDT This is a non-reportable exam. Procedure Note Ramiro Rodriguez - 02/05/2014Formatti ng of this note might be different from the original. This is a non-reportable exam. Patria Rodgers APRN [facility] FILM LIBRARY ORDERABLES Performing Organization Address City/State/ZIP Code Phon e Number RAD DH RAD [address] [facility] [place] [address] documented in this encounter Visit Diagnoses Not on filedocumented in this encounter Care Teams Gardener Florist Relationship Specialty Start Date End Date Dieter Anderson MD PCP - General 05/05/10 12/19/12 [address] [place] [address] documented as of this encounter
--- OUTSIDE RECORDS SUMMARY | 2022-01-08 01:07 | XMS_ITS | Encounter Summary ---
:1945 Author Organization [facility] Address [address] [place] [address] Care Team Providers Name Role Phone Cheryle Carrasco MD Primary Care Provider Encounter Details Date Type Department Care Team Description 12/20/2012 Surgery Gastroenterology at [facility] Linda Palmer MD UPPER GASTROINTESTINAL [facility] ENDOSCOPY,[place] [address] SINGLE OR MULTIPLE ([facility] [phone] GASTROENTEROLOGY 2.49) [place] [address] Social History Tobacco Use Types Packs/Day Years [...] occur please notify your MD. Please call [phone] before 5pm with problems, questions or concerns. After 5 pm call [phone] and ask to speak with the GI fellow alterations sewer. Discharge instructions reviewed with patient who expresses understanding. AttachmentsThe following attachments cannot be sent through Care Everywhere. UPPER GI ENDOSCOPY: WHAT TO EXPECT AT HOME (FAROESE)documented in this encounter Medications at Time of [...] in this encounter Miscellaneous Notes Brigid - Iker, Scanning - 12/20/2012 10:18 PM EDT Brigid Dogn Scanning - 12/20/2012 10:16 PM EDT OR Attestation - Linda Palmer MD - 12/20/2012 10:11 AM EDT Attestation: Case Date: 12/20/2012 As the attending physician, I performed the entire procedure. LINDA PALMER MD 12/20/2012 Brigid - Iker Scanning - 12/20/2012 9:33 AM EDT Brigid Dong Scanning - 12/20/2012 9:28 AM EDT documented [...] Component Value Ref Test Analysis Performed At [facility] gist Range Method Time Signature Surgical CERNER Pathology ? [facility] Report ? Provider: ?? SPENCER, LINDA ? Pt. Name: ?? JANEEN DOE ? Acc #: ?[id number] ?Pt. MRN: ?[id number] ? Col Date: ?? 3 ? /Sex: [...] ? Patient with abnormal liver tests ? [facility] ? Provider: ?? LINDA PALMER ? Pt. Name: ?? M JANEEN JOHNSON ? Acc #: ?[id number] ?Pt. MRN: ?[id number] ? Col Date: ?? 3 ? /Sex: ?1945,(67 years),Male ? Rec Date: ?? 12/20/2012 ? LOC: ?4T ? SURGICAL PATHOLOGY ? Clinical Diagnosis: ? Gastric erythema/erosion, esophageal white plaques Specimen (Source) Anatomical Collection Method Collection Time Re ceived Time Location / / Volume Laterality 12/20/2012 10:11 AM EDT Linda Palmer MD PATHOLOGY/CYTOLOGY ORDERABLE S Performing Organization Address City/[facility] [place] [address] CERNER MILLENNIUM Specimen to [...] MD PATHOLOGY/CYTOLOGY ORDERABLE S Performing Organization Address City/[facility] [place] [address] CERNER MILLENNIUM Specimen to [...] MD PATHOLOGY/CYTOLOGY ORDERABLE S Performing Organization Address City/[facility] [place] [address] CERNER MILLENNIUM UPPER GI ENDOSCOPY (12/20/2012 9:33 AM EDT) [facility] Method Time Signature UPPER GI [facility] ENDOSCOPY Endoscopy Patient Name: Janeen Harris ? Procedure Date: 12/20/2012 9:33 AM ? Date of : 1945 ? Age: 67 ? Order #: [id number] ? Procedure: ? Upper GI endoscopy Indications: ? Chronic liver disease, ?portal ? hypertension Providers: ? Linda Palmer MD, Erma López RN, ? Kiara Morales Referring : ?Dieter Anderson MD, Patria Rodgers, [employer] M[employer]ER MUSHROOM Medicines: ? Propofol per Anesthesia Complications: ? No immediate complications. Procedure: ? The procedure, indications, benefi ts, ? risks and alternatives were e xplained ? to the patient. Specifically ? discussed were potential ? complications including, but not ? limited to, bleeding, perfora tion, ? infection, missing a cancer, and ? adverse medication reactions. The ? Endoscope was introduced thro [facility] the ? mouth, and advanced [facility] the [facility] part ? of duodenum. The patient tole [...] of liver without mention of al cohol Cirrhosis of liver Cirrhosis of liver without mention of al cohol documented in this encounter Active and Recently Administered Medications Care Teams Audio Video Repairer Relationship Specialty Start Date End Date Cheryle Carrasco MD PCP - General 12/20/12 01/30/13 [address] [place] [address] documented as of this encounter
--- OUTSIDE RECORDS SUMMARY | 2022-01-08 01:08 | XMS_ITS | Encounter Summary ---
:[address] [facility] Address [address] [place] [address] Care Team Providers Name Role Phone Unknown, Provider Primary Care Provider Encounter Details Date Type Department Care Team Description 12/29/2010 Results Only [facility] Tarun Huynh , Laboratory Services - [address] [place] [address] [place] [address] [phone] Social History Tobacco Use Types Packs/Day Years Used Date Never Assessed Sex Assigned at Date Recorded Not on file documented as of this encounter Plan of Treatment Not on filedocumented as of this encounter Procedures Procedure Name Priority Date/Time Associated Diagnosis Comme nts SURGICAL PATHOLOGY Routine 12/29/2010 0:00 EDT Re sults for this procedure are i n the results section. documented in this encounter Results SURGICAL PATHOLOGY (12/29/2010 0:00 EDT) Pathology Report: SURGICAL PATHOLOGY REPORT ? [facility] Reports generated via [employer] interface contain original data; ? LAB however they are lacking the format of the original report. ? Caution should be taken when reading/interpreting unformatted reports. ? Name: ? HARRIS, JANEEN ? Accession #: ? [id number] ? : ? 1945 (Age: 65) ??M ? Collec t Date: ? 12/29/2010 ? Location: ? [facility] ? R eceive Date: ? 12/29/2010 ? Provider: TARUN VASQUEZ SON DO ? Copy to: MYRTLE DENNY AP RN ? Final Pathologic Diagnosis: ? A. ?Ileocecal v alve, biopsy: ? 1. ?Tubular jonathan noma. ? B. ?Colon, asce nding, biopsy: ? 1. ?Fragments o f tubular adenoma. ? Document reviewed and electr onically signed by: ? JOVI SILVA MD ? Report ??Date: 12/31/2010 15 :25 ? By the signature above, the attending physician certifies that he/she has ? personally conducted a gross and/or microscopic examination of the described ? specimens and rendered or co nfirmed the above diagnosis. ? Specimen(s) Received: ? A. ?Ileocecal v alve polyp ? B. ? Ascending colon evelio yp ? Clinical History: ? Colorectal screen ? Gross Description: ? Received in formalin labelled Steven Janeen and ileocecal valve ? polyp is a single 0.3 x 0.3 x 0.2 cm pink-kim irregular soft tissue. ??Submitted in toto as (A). ? Received in formalin shruthi d HarrisJaneen and ascending colon polyp are two pink-kim irregular soft tissues, each 0.2 x 0.2 x 0.2 cm. ??Submitted in toto as (B). ??(Grant Wheatley)/jacekn ? End of Report ? Specimen Performing Organization Address City/State/ZIP Code Phon e Number [facility] [address] [place] [address] SERVICES [facility] [address] [place] [address] documented in this encounter Visit Diagnoses Not on filedocumented in this encounter Care Teams Central Supply Aide Relationship Specialty Start Date End Date Unknown, Provider, PCP - General 12/29/10 12/30/10 documented as of this encounter
--- OUTSIDE RECORDS SUMMARY | 2022-01-08 01:08 | XMS_ITS | Encounter Summary ---
:1945 Author Organization [facility] Address [address] [place] [address] Care Team Providers Name Role Phone Spencer Aden MD Primary Care Provider Unavailable Encounter Details Date Type Department Care Team Description 12/11/[address] [facility] Outr Resulting Lab, Pathology & Laboratory Provider [facility] [address] [place] [address] Social History Tobacco Use Types Packs/Day Years Used Date Never Assessed Sex Assigned at Date Recorded Not on file documented as of this encounter Plan of Treatment Not on filedocumented as of this encounter Procedures Procedure Name Priority Date/Time Associated Comments Diagnosis PSA TOTAL, Routine 12/11/2019 10:10 Results for this DIAGNOSTIC EDT procedure are i n the results section. documented in this encounter Results PSA TOTAL, DIAGNOSTIC (12/11/2019 10:10 EDT) Pathologist Sig nature PSA 0.5 0.0 - 6.5 ng/mL [facility] Specimen Blood - Venous blood (substance) Narrative [facility] - 12/12/2019 8:47 EDT NOTE: Serum PSA concentration should not be in terpreted as absolute evidence for the presence or absence of malignant disease. Assayed on Siemens ADVIA Centaur XPT usi ng chemiluminescent technology.??Values obtained by using different assay methods cannot be used interchangeably. Performing Organization Address City/State/ZIP Code Phon e Number [facility] [address] [place] [address] SERVICES documented in this encounter Visit Diagnoses Not on filedocumented in this encounter Care Teams Managed Care Analyst Relationship Specialty Start Date End Date Spencer Aden MD PCP - General 03/26/16 documented as of this encounter
--- OUTSIDE RECORDS SUMMARY | 2022-01-08 01:08 | XMS_ITS | Encounter Summary ---
:[address] [facility] Address [address] [place] [address] Care Team Providers Name Role Phone Bailey Tejeda NP Primary Care Provider Encounter Details Date Type Department Care Team Description 03/23/2016 Results Only [facility]- PRISM Tarun Barreto, DO [address] [facility] [address] [place], [place] [phone] (Wo rk) Social History Tobacco Use Types Packs/Day Years Used Date Never Assessed Sex Assigned at Date Recorded Not on file documented as of this encounter Plan of Treatment Not on filedocumented as of this encounter Procedures Procedure Name Priority Date/Time Associated Diagnosis Comme [facility] SURGICAL PATHOLOGY Routine 03/23/2016 21:42 Resul ts for this EDT procedure are i n the results section. documented in this encounter Results SURGICAL PATHOLOGY (03/23/2016 21:42 EDT) Pathology Report: SURGICAL PATHOLOGY REPORT [facility] Reports generated via electronic interface contain danielle ginal data; LABORATORY however they are lacking the format of the original re port. SERVICES Caution should be taken when reading/interpreting unfo rmatted reports. Name: ? JANEEN HARRIS ? Accession #: ? [id number] ? : ? 1945 (Age: 6 1) ??M ? Collect Date: ? 03/23/2016 ? Location: ? [facility] ? Receive Date: ? 016 ? Provider: TARUN BARRETO DO Copy to: VALERIA RICARDO MD ? Final Pathologic Diagnosis: A. ? ESOPHAGUS, DISTAL, BIOPSY: - Squamocolumnar junction mucosa with active reflux es ophagitis. - Negative for intestinal metaplasia; Negative for dy splasia. B. ? COLON, SIGMOID, POLYP, BIOPSY: - Fragments of tubulovillous adenoma. ?? Document reviewed and electronically signed by: MIRA PEREZ MD Report ??Date: 03/25/2016 16:32 By the signature above, the attending physician certif ies that he/she has personally conducted a gross and/or microscopic examin ation of the described specimens and rendered or confirmed the above diagnosi s. Specimen(s) Received: A. ??Distal esophagus x3 B. ??Sigmoid polyp Clinical History: Cirrhosis, distal esophagitis, ?Anand's, f/u colon p olyps Gross Description: A. ?Received in formalin labelled with proper p atient identification (initials M, S) and distal esophagus a re three pink-kim tissues (0.3 x 0.2 x 0.2 cm to 0.5 x 0.3 x 0.2 cm). Entirely submitted in A 1. B. ?Received in formalin labelled with proper p atient identification (initials M, S) and sigmoid colon polyp are two pink-kim polypoid tissues (0.3 x 0.2 x 0.2 cm and 0.6 x 0.6 x 0.3 cm). The margins are inked blue, the smaller piece is bisected and entirely submitted in B1, and th e larger piece is trisected and entirely submitted in B2. IAM Jaramillo ([facility]) 03/24/2016 8:28 AM End of Report Specimen Performing Organization Address City/State/ZIP Code Phon e Number [facility] [address] [place] [address] SERVICES documented in this encounter Visit Diagnoses Not on filedocumented in this encounter Care Teams Hearing Dog Trainer Relationship Specialty Start Date End Date Bailey Tejeda NP PCP - General 12/31/10 03/25/16 [address] [place] [address] documented as of this encounter
--- OUTSIDE RECORDS SUMMARY | 2022-01-08 01:08 | XMS_ITS | Encounter Summary ---
:1945 Author Organization [facility] Address [address] [place] [address] Care Team Providers Name Role Phone Bailey Tejeda BANK TELLER Primary Care Provider Encounter Details Date Type Department Care Team Description 03/23/2016 Hospital Encounter [facility]- Bety Unknown, Provider, [facility] [address] [facility] [phone] [place] [address] (Work) [phone] Social History Tobacco Use Types Packs/Day Years Used Date Never Assessed Sex Assigned at Date Recorded Not on file documented as of this encounter Discharge Disposition Disposition Code Departure Means Destination Home or Self Half-Way documented in this encounter Plan of Treatment Not on filedocumented as of this encounter Visit Diagnoses Not on filedocumented in this encounter Care Teams Fitness And Wellness Instructor Relationship Specialty Start Date End Date Bailey Tejeda, BANK TELLER PCP - General 12/31/10 03/25/[address] [place] [phone] documented as of this encounter
--- OUTSIDE RECORDS SUMMARY | 2022-01-08 01:08 | XMS_ITS | Encounter Summary ---
:1945 Author Organization [facility] Address [address] [place] [address] Care Team Providers Name Role Phone Spencer Aden MD Primary Care Provider Unavailable Encounter Details Date Type Department Care Team Description 05/11/2020 Lab Requisition [facility] Outr Resulting Lab, Pathology & Laboratory Provider [facility] [address] [place] [address] Social History Tobacco Use Types Packs/Day Years Used Date Never Assessed Sex Assigned at Date Recorded Not on file documented as of this encounter Plan of Treatment Not on filedocumented as of this encounter Procedures Procedure Name Priority Date/Time Associated Diagnosis Comme nts LYME AB Routine 05/10/2020 10:20 EST Results for this procedure are i n the results section . documented in this encounter Results LYME AB (05/10/2020 10:20 EST) Pathologist Sig nature Lyme Ab NegativeComment: New Negative [facility] 3rd generation assay LABORATORY SERVICES in use 11/21/2019 Specimen Blood - Venous blood (substance) Performing Organization Address City/State/ZIP Code Phon e Number [facility] [address] [place] [address] SERVICES documented in this encounter Visit Diagnoses Not on filedocumented in this encounter Care Teams Cryptozoologist Relationship Specialty Start Date End Date Spencer Aden MD PCP - General 03/26/16 documented as of this encounter
--- OUTSIDE RECORDS SUMMARY | 2022-01-08 01:08 | XMS_ITS | Encounter Summary ---
:1945 Author Organization [facility] Address [address] [place] [address] Care Team Providers Name Role Phone Bailey Tejeda SEMICONDUCTOR WAFERS SAW OPERATOR Primary Care Provider Encounter Details Date Type Department Care Team Description 03/10/2015 Hospital Encounter [facility] - S Unknown, Pro Micheal villareal MD [address] [facility] [phone] [place] [address] (Work) [phone] Social History Tobacco Use Types Packs/Day Years Used Date Never Assessed Sex Assigned at Date Recorded Not on file documented as of this encounter Discharge Disposition Disposition Code Departure Means Destination Home or Self [facility] documented in this encounter Plan of Treatment Not on filedocumented as of this encounter Visit Diagnoses Not on filedocumented in this encounter Care Teams Clothing Designer Relationship Specialty Start Date End Date Bailey Tejeda, SEMICONDUCTOR WAFERS SAW OPERATOR PCP - General 12/31/10 03/25/16 [address] [place] [phone] documented as of this encounter
--- OUTSIDE RECORDS SUMMARY | 2022-01-08 01:08 | XMS_ITS | Encounter Summary ---
:1945 Author Organization [facility] Address [address] [place] [address] Care Team Providers Name Role Phone Bailey Tejeda MOLD CLEANER Primary Care Provider Encounter Details Date Type Department Care Team Description 12/30/2014 Results Only [facility]- PRISM Yoanna Connor, [address] [place], [place] [phone] (Wo rk) Social History Tobacco Use Types Packs/Day Years Used Date Never Assessed Sex Assigned at Date Recorded Not on file documented as of this encounter Plan of Treatment Not on filedocumented as of this encounter Procedures Procedure Name Priority Date/Time Associated Diagnosis Comme [facility] SURGICAL PATHOLOGY Routine 12/30/2014 18:03 Resul ts for this EDT procedure are i n the results section. documented in this encounter Results SURGICAL PATHOLOGY (12/30/2014 18:03 EDT) Pathology SURGICAL PATHOLOGY REPORT [facility] MED[facility] Report: Reports generated via electronic interface conta in original data; CENTER however they are lacking the format of the original re port. LABORATORY Caution should be taken when reading/interpretin g unformatted reports. SERVICES Name: ? JANEEN HARRIS ? Accession #: ? [id number] ? : ? 1945 (Age: 6 0) ??M ? Collect Date: ? 12/30/2014 ? Location: ? [facility] ? Receive Date: ? 12/31/19 15 ? Provider: YOANNA CONNOR DO Copy to: VALERIA RICARDO MD ? Final Pathologic Diagnosis: A. ??SKIN OF BACK, MID UPPER, SHAVE BIOPSY: - Melanocytic nevus, junctional type, with unusu al architectural features and mild cytologic atypia. ??See microscopic. - Lesion does not extend to biopsy edges in the plane of the sections examined. ??- Lesion measures approximately 0.4 mm to the biops y base. ??- Lesion measures approximately 2.0 mm to the ne[address] st peripheral edge. B. ??SKIN OF NASOFACIAL CREASE, LEFT, SHAVE BIOPSIES: - Basal cell carcinoma, nodular type. - Lesion extends to peripheral edge and base of biops y specimen. ? Microscopic Description: A-The epidermis is hyperplastic with elongate and anas tomosing rete ridges. There is a circumscribed pro liferation of melanocytes within the epidermis that consists of nests and individual cells in a lentiginou s pattern. ??The nests predominate and vary in size, shape, and spacing. ??So me of the nests bridge between rete ridges. ??Altho ugh the individual melanocytes are unevenly spaced in some areas, they show no tendency toward confluent growth or upward migration. The melanocytes are enlarged and show a mild deg ree of nuclear size and shape variation. 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 ??[place]-1 (Melan-A) ALK PHOS (A103, [place]) does not show evidence of well develop ed confluent growth or upward migration. ??Deeper levels have been examined. B-Irregularly shaped islands of atypical basal cells infiltrate the dermis. ??The basal cells have scant cytoplasm and round dark nuclei. ??Mitotic figures and apoptotic bodies are evident . ??The nuclei at the periphery of the islands have a palisaded arrangement. ??The islands are associated with a fibromyxoid stroma and there is cleft formation between some of the islands a nd stroma. ??(Dr. Shay)/felicia NOTE: ??One or more of the reagents used in immunohistochemical testing in this case may not have been cleared or approved by the U.S. Food and Drug Administration (FDA). ??The FDA has determined that such clearance or approval is not necessary. ??These tests are used for clinical purposes. ??They should not be regarded as investigational or for research. ??These r eagents' performance characteristics have been determined by [facility]. ??This laboratory is certified under the Clinical Laboratory Improvement Amendments of 1988 (CLIA-88) as qualified to per form high complexity clinical laboratory testing. ? Document reviewed and electronically signed by: SHAKIR SHAY MD Report ??Date: 01/01/2015 16:57 By the signature above, the attending physician certif ies that he/she has personally conducted a gross and/or microscopic examin ation of the described specimens and rendered or confirmed the above diagnosi s. Specimen(s) Received: A. ??Mid upper back B. ??Left nasofacial crease Clinical History: Non-healing lesion, clinical diagnosis code: ??239.2 Gross Description: A. ?Received in formalin labelled with proper p atient identification (initials M, S) and #1 mid upper back is a shave bio psy of pink-kim hairbearing skin (1.0 x 1.0 x 0.1 cm). There is an ecc entric kim-brown well demarcated macule that measures 0.4 x 0.3 cm. The spec imen is trisected and entirely submitted as A1. B. ?Received in formalin labelled with proper p atient identification (initials M, S) and #2 left nasofacial crease is a shave biopsy of pink-kim skin (0.5 x 0.4 x 0.1 cm) with an eccentric kim- brown ill-defined macule that measures 0.1 x 0.1 cm. Also received in the same conta iner are two shave biopsies of kim-red skin (ea ch 0.3 x 0.2 x 0.1 cm). The larger shave is bisected and entirely submitted as B1 and the smaller shaves are submitted intact as B2. Fernie Flynn 12/31/2014 8:56 AM End of Report Specimen Performing Organization Address City/State/ZIP Code Phon e Number [facility] [address] [place] [address] SERVICES documented in this encounter Visit Diagnoses Not on filedocumented in this encounter Care Teams Metal Caster Relationship Specialty Start Date End Date Bailey Tejeda NP PCP - General 12/31/10 03/25/16 [address] [place] [phone] documented as of this encounter
--- OUTSIDE RECORDS SUMMARY | 2022-01-08 01:08 | XMS_ITS | Encounter Summary ---
:1945 Author Organization [facility] Address [address] [place] [address] Care Team Providers Name Role Phone Bailey Tejeda MUSEUM ASSISTANT Primary Care Provider Encounter Details Date Type Department Care Team Description 12/30/2014 Hospital Encounter [facility]- Bety Mooney, Provider, [facility] [address] [facility] [phone] [place] [address] (Work) [phone] Social History Tobacco Use Types Packs/Day Years Used Date Never Assessed Sex Assigned at Date Recorded Not on file documented as of this encounter Discharge Disposition Disposition Code Departure Means Destination Home or Self Prison documented in this encounter Plan of Treatment Not on filedocumented as of this encounter Visit Diagnoses Not on filedocumented in this encounter Care Teams Volleyball Commentator Relationship Specialty Start Date End Date Bailey Tejeda, MUSEUM ASSISTANT PCP - General 12/31/10 03/25/[address] [place] [phone] documented as of this encounter
--- OUTSIDE RECORDS SUMMARY | 2022-01-08 01:08 | XMS_ITS | Encounter Summary ---
:1945 Author Organization [facility] Address [address] [place] [address] Care Team Providers Name Role Phone Spencer Aden MD Primary Care Provider Unavailable Encounter Details Date Type Department Care Team Description 08/16/2016 Hospital Encounter [facility]- Bety Unknown, Provider, [facility] [address] [facility] [phone] [place] [address] (Work) [phone] Social History Tobacco Use Types Packs/Day Years Used Date Never Assessed Sex Assigned at Date Recorded Not on file documented as of this encounter Discharge Disposition Disposition Code Departure Means Destination Home or Self [facility] documented in this encounter Plan of Treatment Not on filedocumented as of this encounter Visit Diagnoses Not on filedocumented in this encounter Care Teams Rope Coiling Machine Operator Relationship Specialty Start Date End Date Spencer Aden MD PCP - General 03/26/16 documented as of this encounter
--- OUTSIDE RECORDS SUMMARY | 2022-01-08 01:08 | XMS_ITS | Clinical Summary ---
:1945 Author Organization [facility] Address [address] [place] [address] Care Team Providers Name Role Phone Spencer Aden MD Primary Care Provider Unavailable Social History Tobacco Use Types Packs/Day Years Used Date Never Assessed Sex Assigned at Date Recorded Not on file Plan of Treatment Health Maintenance Due Date Last Done Comments Fall Risk Screening 2009 Care Teams Systems Support Specialist Relationship Specialty Start Date End Date Spencer Aden MD PCP - General 03/26/16
[2022-01-08 13:03] LABS: Anion Gap 10.8 mmol/L (3-11); BUN 16 mg/dL (7-18); CO2 23.2 mmol/L (21.0-32.0); Calcium 8.5 mg/dL (8.5-10.1); Chloride 105 mmol/L (98-107); Glucose 95 mg/dL (74-106); Potassium 4.5 mmol/L (3.5-5.1); Sodium 139 mmol/L (136-145); TSH 2.45 uIU/mL (0.36-3.74)
== END 2022-01-08 01:04 | disposition home or self-care (01) ==
LOC: LOS 01:04
PROVIDERS: PCP Nurse Practitioner Family; Visit Provider Nurse Practitioner Family
DX: E03.9 Hypothyroidism, unspecified (principal); I10 Essential (primary) hypertension
CPT/HCPCS: 36415; 80048; 84443

== ENCOUNTER 2023-01-14 02:22 | Outpatient (CLI) | payer MEDICARE, BC, SELFPAY ==
[2023-01-14 12:58] LABS: Calculated LDL 98 mg/dL (<100); Cholesterol 153 mg/dL (<200); Estimated GFR 77.04 (mL/min/1.73m2); HDL Cholesterol 41 mg/dL (40-60); Potassium 4.7 mmol/L (3.5-5.1); TSH (W/Ref FT4) 2.45 uIU/mL (0.36-3.74); Triglyceride 70 mg/dL (<150)
== END 2023-01-14 02:23 | disposition home or self-care (01) ==
LOC: LOS 02:22
PROVIDERS: PCP Nurse Practitioner Family; Visit Provider Nurse Practitioner Family
DX: I10 Essential (primary) hypertension (principal); E78.1 Pure hyperglyceridemia; E03.9 Hypothyroidism, unspecified
CPT/HCPCS: 36415; 80061; 82565; 84132; 84443

== ENCOUNTER → 2023-06-24 02:26 | Outpatient (CLI) | payer MEDICARE, BC, SELFPAY ==
--- NOTE | 2023-06-24 06:45 | DI.CT_ITS ---
Exam(s) CT ABDOMEN PELVIS WO EXAM: CT ABDOMEN PELVIS WO CLINICAL HISTORY: ? ureteral stone,N20.1. TECHNIQUE: Imaging Protocol: Axial computed tomography images with coronal and sagittal reformatted images were created and reviewed. COMPARISON: CT RENAL COLIC WO CONTRAST from 04/22/2016 FINDINGS: ABDOMEN: Lung Bases: Normal where visualized. Liver: Normal density. No measurable mass. Gallbladder and biliary tract: Gallstones. No biliary ductal dilatation. Pancreas: There is fatty atrophy of the pancreas. No evidence of a pancreatic mass or peripancreatic fluid collection. Spleen: Normal. Kidneys: Normal size, contour and axis.No radiodense stones or obstructive uropathy. No masses seen. Adrenal glands: No mass is seen. Lymph nodes: Within normal limits. Abdominal Aorta: Abdominal portion non-dilated. Atherosclerosis. PELVIS: Bladder:The bladder is poorly distended limiting evaluation. Bowel: There is diverticulosis of the colon. There is no evidence of acute diverticulitis. No bowel wall thickening or obstruction. There is a duodenal diverticulum adjacent to the pancreatic head. The stomach is incompletely distended limiting evaluation. Appendix is unremarkable. Peritoneal cavity: No ascites, collection or mesenteric inflammatory response. No free air. Reproductive organs: Unremarkable as visualized. Bones: Within normal limits for the patient's age. 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 Soft Tissues: There is a small fat containing umbilical hernia. IMPRESSION: 1. No evidence of nephrolithiasis or hydronephrosis. 2. Colonic diverticulosis but no evidence of acute diverticulitis. 3. Cholelithiasis. No biliary ductal dilatation. RADIATION DOSE DELIVERED: 1,675.44mGy.cm Total DLP DATA REPOSITORY: All CT scans at this facility are submitted to the National Radiology Data Registry (NRDR) Dose Index Registry (DIR) with the [employer] (ACR). RADIATION OPTIMIZATION: All CT scans at this facility use at least one of these dose optimization te chniques: automated exposure control; mA and/or kV adjustment per patient size (includes targeted exa ms where dose is matched to clinical indication); or iterative reconstruction.
== END ==
PROVIDERS: PCP Nurse Practitioner Family; Visit Provider Urology
DX: K80.00 Calculus of gallbladder with acute cholecystitis without obstruction (principal); K57.30 Diverticulosis of large intestine without perforation or abscess without bleeding
CPT/HCPCS: 74176

== ENCOUNTER 2023-06-24 16:46 | Outpatient (REF) | payer MEDICARE, BC, SELFPAY ==
[2023-06-24 12:40] LABS: Bilirubin Negative (Negative); Blood Negative (Negative); Clarity Cloudy (Clear); Glucose Negative (Negative); Ketones Negative (Negative); Leukocyte Esterase Negative (Negative); Nitrite Negative (Negative); Specific Gravity >= 1.030 (1.005-1.025); Urobilinogen 0.2 mg/dL (Up to 0.2); pH 5.5 (5-8)
== END 2023-06-24 16:47 | disposition home or self-care (01) ==
LOC: LBN 16:46
PROVIDERS: PCP Nurse Practitioner Family; Visit Provider Urology
DX: N20.1 Calculus of ureter (principal); R82.998 Other abnormal findings in urine
CPT/HCPCS: 81003

== ENCOUNTER → 2024-02-07 14:14 | Outpatient (BNVA) | payer MEDICARE, BC, SELFPAY | PROVIDERS: PCP Nurse Practitioner Family; Referring Provider Nurse Practitioner Family; Visit Provider Student in an Organized Health Care Education/Training Program | DX: M65.342 Trigger finger, left ring finger (principal) | CPT/HCPCS: 99203 ==

== ENCOUNTER 2024-02-08 03:23 | Outpatient (CLI) | payer MEDICARE, BC, SELFPAY ==
[2024-02-08 09:32] LABS: Calculated LDL 100 mg/dL (<100); Cholesterol 163 mg/dL (<200); Estimated GFR 76.56 (mL/min/1.73m2); HDL Cholesterol 44 mg/dL (40-60); Potassium 4.8 mmol/L (3.5-5.1); TSH (W/Ref FT4) 3.73 uIU/mL (0.36-3.74); Triglyceride 95 mg/dL (<150)
[2024-02-09 15:49] LABS: PSA, Screening 0.7 ng/mL (<=6.5)
== END 2024-02-08 03:24 | disposition home or self-care (01) ==
LOC: LBO 03:23
PROVIDERS: PCP Nurse Practitioner Family; Visit Provider Nurse Practitioner Family
DX: I10 Essential (primary) hypertension (principal); Z13.6 Encounter for screening for cardiovascular disorders; Z12.5 Encounter for screening for malignant neoplasm of prostate; E03.9 Hypothyroidism, unspecified
CPT/HCPCS: 36415; 80061; 84153; 82565; 84132; 84443

== ENCOUNTER 2024-02-16 09:12 | Day surgery (SDC) | payer MEDICARE, BC, SELFPAY ==
--- NOTE | 2024-02-16 07:23 | W.PM.DSUDISC ---
Date of service: 02/16/24 Time of Service: 12:00 Discharge Plan Disposition Patient Disposition: Home Condition: Stable Discharge Details Attending Provider: Lamin Bass Primary Care Provider: Mook Estrada Home Meds and New Rx's Prescriptions: Continued levothyroxine 50 mcg tablet 50 mcg PO DAILY Qty: 90 4RF omeprazole 20 mg capsule,delayed release(DR/EC) 20 mg PO DAILY Qty: 90 3RF Discharge Instructions Additional Instructions: Surgery: Left ring finger trigger release Activity: Protect hand for a few weeks. Gently increase finger motion and hand gripping to prevent stiffness. Recommend elevation to minimize swelling and discomfort. Prescriptions: None Resume home medicines, use [id number] Tylenol (acetaminophen) as needed for mild pain and ibuprofen (Motrin) or naproxen (Aleve) as needed for moderate to severe pain and swelling. Dressings: Leave dressing in place for 3 days. May then remove and leave open to air or cover incision with Band-Aid. May get wet after 5 days. Follow-up: 10-[address] Bass Please call the office during business hours with any questions or concerns. Stand Alone Forms: Guanako Duran (ARISU) Discharge Orders Discharge Orders: Discharge Order (Routine); Ordered 02/16/24 Ordered By: Anastasiya Sandoval DS: Diagnosis Discharge Diagnosis (1) Trigger finger, left ring finger: Status: Acute
[2024-02-16 09:35] VITALS: BP 140/84; PULSE 55; RESP 16; TEMP 36.3; O2SAT 97
[2024-02-16] MEDS: Lidocaine 1% Multi-Dose W/EPI 1/100,000 50 ML VIAL (10:58)
[2024-02-16] MEDS: Sodium Bicarbonate 50 MEQ/50 ML VIAL (10:58)
--- NOTE | 2024-02-16 11:16 | ROE_ITS ---
Date of service: 02/16/24 Time of Service: 11:00 Operative Note Operative Note DATE OF PROCEDURE: 02/16/24 PRE-OP DIAGNOSIS: Left ring trigger finger PROCEDURE: Left ring finger trigger release, CPT# 30611 SURGEON: Lamin Bass FIELD CONTRACTOR: None None ANESTHESIA TYPE: Local By Surgeon Refer to Anesthesia Record ESTIMATED BLOOD LOSS: 1 TOURNIQUET TIME: 0 COMPLICATIONS: None Patient was transported to: same day Patient's condition: stable Indications: Please see complete medical record for details. Procedure Description: In the operating room, the patient was positioned supine on the stretcher. All bony prominences were padded. Preoperative antibiotics were omitted. The correct patient, procedure, and side of the procedure were all verified prior to beginning. Local anesthesia was induced about the site with 10cc of 1% lidocaine containing epinephrine buffered with 1 cc of sodium bicarbonate. The Left hand was prepped and draped in the usual sterile fashion. Proper analgesia was confirmed. A small volar longitudinal approach was made overlying the ring finger MCP joint within the skin wrinkle. Soft tissues were swept to the sides and retracted to expose the A1 dianne. The release was started centrally with a knife and completed at the proximal and distal margins with tenotomy scissors. Care was taken to protect the flexor tendons. The tendons were inspected and showed mild superficial degeneration, which was lightly trimmed. Appropriate flexor tendon excursion was confirmed. The patient readily demonstrated full range of motion of the finger without triggering. The small incision was irrigated and then dried. Hemostasis was appropriate. The incision was closed using 3-0 nylon in a horizontal mattress fashion. Xeroform was applied followed by gauze and the hand was gently compressed with an Eduard bandage. The patient tolerated local anesthesia without complication and was transferred out of the operating room in a stable condition.
[2024-02-16 11:23] VITALS: BP 152/80; PULSE 50; RESP 16; TEMP 36.4; O2SAT 100
== END 2024-02-16 11:27 | disposition home or self-care (01) ==
LOC: SUR 09:12
PROVIDERS: PCP Nurse Practitioner Family; Visit Provider Student in an Organized Health Care Education/Training Program
PROC: (CPT 26055; principal; 2024-02-16 10:45)
DX: M65.342 Trigger finger, left ring finger (principal)
CPT/HCPCS: 26055; J2004

== ENCOUNTER → 2024-02-28 10:48 | Outpatient (BNVA) | payer MEDICARE, BC, SELFPAY | PROVIDERS: PCP Nurse Practitioner Family; Referring Provider Nurse Practitioner Family; Visit Provider Student in an Organized Health Care Education/Training Program | DX: Z47.89 Encounter for other orthopedic aftercare (principal); M25.642 Stiffness of left hand, not elsewhere classified ==

== ENCOUNTER 2025-01-30 10:05 | Outpatient (CLI) | payer MEDICARE, BC, SELFPAY ==
[2025-01-30 12:57] LABS: Anion Gap 9.8 mmol/L (3-11); BUN 16 mg/dL (7-18); CO2 25.2 mmol/L (21.0-32.0); Calcium 8.5 mg/dL (8.5-10.1); Calculated LDL 104 mg/dL (<100); Chloride 105 mmol/L (98-107); Cholesterol 165 mg/dL (<200); Estimated GFR 86.34 (mL/min/1.73m2); Glucose 96 mg/dL (74-106); HDL Cholesterol 40 mg/dL (>or=40); Hemoglobin A1C 5.6 % (<5.7); Potassium 4.6 mmol/L (3.5-5.1); Sodium 140 mmol/L (136-145); TSH (W/Ref FT4) 3.22 uIU/mL (0.36-3.74); Triglyceride 108 mg/dL (<150)
== END 2025-01-30 10:06 | disposition home or self-care (01) ==
PROVIDERS: PCP Nurse Practitioner Family; Referring Provider Nurse Practitioner Family; Visit Provider Nurse Practitioner Family
DX: Z13.1 Encounter for screening for diabetes mellitus (principal); Z13.6 Encounter for screening for cardiovascular disorders; E03.9 Hypothyroidism, unspecified
CPT/HCPCS: 36415; 80048; 80061; 83036; 84443